=== PATIENT | male | born 1960 | race Caucasian/White ===

== ENCOUNTER 2020-03-03 12:22 | Outpatient (CLI) | payer OTHER ==
--- NOTE | 2020-03-03 14:19 | RAD ---
TWO VIEW CHEST: 03/03/20 HISTORY: Dyspnea. No comparison. Lungs show no evidence of infiltrate or significant effusion. Mild hyperexpansion. Mild interstitial prominence. Vasculature normal. Heart and mediastinum unremarkable. Osseous structures unremarkable. IMPRESSION: No acute process identified. POS: [id number]
== END 2020-03-03 12:23 | disposition home or self-care (01) ==
LOC: BICRAD 12:22
PROVIDERS: ATTEND Internal Medicine
DX: R06.09 Other forms of dyspnea (principal)
CPT/HCPCS: 71046

== ENCOUNTER 2020-09-13 02:23 | Emergency (ER) | payer OTHER ==
[2020-09-13] MEDS ORDERED: Ondansetron ODT 8 MG TAB ONE (03:26)
[2020-09-13 03:50] LABS: Medtox Reader # READER 4; Phencyclidine (PCP) Not Detected (NotDetected); THC/Cannabinoid Screen Not Detected (NotDetected)
[2020-09-13 03:51] LABS: Amphetamine Not Detected (NotDetected); Barbiturates Screen Not Detected (NotDetected); Benzodiazepine Screen Not Detected (NotDetected); Cocaine Metabolite Screen Detected (NotDetected); Medtox Control Line Valid? VALID (VALID); Methadone Not Detected (NotDetected); Methamphetamine Not Detected (NotDetected); Opiate Screen Not Detected (NotDetected); Oxycodone Screen Not Detected (NotDetected); Tricyclic Screen Not Detected (NotDetected)
[2020-09-13 04:03] LABS: ALT (SGPT) 28 U/L (8-55); AST (SGOT) 35 U/L (5-34); Albumin 3.8 g/dL (3.4-4.8); Alkaline Phosphatase 75 U/L (40-110); Anion Gap 14 mmol/L (10-20); BUN (Urea Nitrogen) 6 mg/dL (8.4-25.7); Bilirubin, Total 0.6 mg/dL (0.2-1.2); Calc. Creatinine Clearance 0 mL/min (70-130); Calcium 8.4 mg/dL (7.8-10.44); Carbon Dioxide 27 mmol/L (23-31); Chloride 104 mmol/L (98-107); Globulin 2.7 g/dL (2.4-3.5); Glucose 87 mg/dL (80-115); Potassium 3.8 mmol/L (3.5-5.1); Protein, Total 6.5 g/dL (5.8-8.1); Sodium 141 mmol/L (136-145)
== END 2020-09-13 04:46 | disposition home or self-care (01) ==
LOC: ERS 02:23
DX: F10.229 Alcohol dependence with intoxication, unspecified (principal); F17.210 Nicotine dependence, cigarettes, uncomplicated
CPT/HCPCS: 36415; 80053; 80306; 99284; Q0162